=== PATIENT | female | born 1980 | race Caucasian/White ===

== ENCOUNTER 2017-07-30 17:33 | Emergency (ER) | payer MEDICAID, OTHER ==
[~2017-07-30] VITALS: Ht 167.6 cm; Wt 79.4 kg
[~2017-07-30 17:33] MED LIST: ALPR0.5T; OME20GT; PRO125RS; SERT-138
[2017-07-30 17:41] VITALS: BP 126/84
== END 2017-07-30 21:58 | disposition home or self-care (01) ==
LOC: ER 17:33
DX: F41.9 Anxiety disorder, unspecified (principal)

== ENCOUNTER 2017-12-05 15:27 | Emergency (ER) | payer MEDICAID ==
[~2017-12-05] VITALS: Ht 167.6 cm; Wt 81.6 kg
[2017-12-05 15:33] VITALS: BP 136/92
[2017-12-05] MEDS ORDERED: TETANUS-DIPTH-ACEL PERTUSSIS 0.5ML SYRG IM ONE (16:00)
[2017-12-05] MEDS ORDERED: LET TOPICAL SOLN 5 ML TOP ONE (16:15)
[2017-12-05] MEDS ORDERED: cefTRIAXone SOD 1,000 MG VL IM ONE (17:45)
[2017-12-05] MEDS ORDERED: LIDOCAINE 1%HCL (LOCAL ANESTH) 10 ML MDV ONE (17:57)
== END 2017-12-05 18:16 | disposition home or self-care (01) ==
LOC: ER 15:27
DX: S62.631B Displaced fracture of distal phalanx of left index finger, initial encounter for open fracture (principal); S61.211A Laceration without foreign body of left index finger without damage to nail, initial encounter; J45.909 Unspecified asthma, uncomplicated; W22.8XXA Striking against or struck by other objects, initial encounter; Y93.89 Activity, other specified; Y99.8 Other external cause status; Y92.89 Other specified places as the place of occurrence of the external cause
CPT/HCPCS: 73140; 90471; 90715; 96372; 99284; J0696; J2001; J3490; 12001

== ENCOUNTER 2024-01-04 04:16 | Inpatient (IN) | payer MEDICAID ==
[~2024-01-04] VITALS: Ht 167.6 cm; Wt 68.1 kg
[~2024-01-04 04:16] MED LIST changes: -SERT-138; +SERT50TA
--- NOTE | 2024-01-04 04:23 | ED.PDOC ---
SOB-HPI HPI Comments 43-year-old female with PMHx Asthma presents with a chief complaint of cough and SOB. Patient states that she has asthma and attempted to use her rescue inhaler and nebulizer to aid her in stopping her SOB, but states that she had no relief. Patient is alert and oriented and able to speak in full complete sentences. No other symptoms or modifying factors present at this time. 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 [employer] Hx Family History Family History: Unknown Social History Smoker: Non-Smoker Alcohol: Denies ETOH Use Drugs: Denies Drug Use Lives In: Home Constitutional: denies: chills, diaphoresis, fatigue, fever, malaise, sweats, weakness, others EENTM: denies: blurred vision, double vision, ear bleeding, ear discharge, ear drainage, ear pain, ear ringing, eye pain, eye redness, hearing loss, mouth pain, mouth swelling, nasal discharge, nose bleeding, nose congestion, nose pain, photophobia, tearing, throat pain, throat swelling, voice changes, others Respiratory: reports: cough, shortness of breath; denies: hemoptysis, orthopnea, SOB at rest, SOB with excertion, stridor, wheezing, others Cardiovascular: denies: chest pain, dizzy spells, diaphoresis, Dyspnea on exertion, edema, irregular heart beat, left arm pain, lightheadedness, palpitations, PND, syncope, others Gastrointestinal: denies: abdomen distended, abdominal pain, blood streaked bowels, constipated, diarrhea, dysphagia, difficulty swallowing, hematemesis, me ashish, nausea, poor appetite, poor fluid intake, rectal bleeding, rectal pain, vomiting, others Genitourinary: denies: abnormal vagina bleeding, burning, dyspareunia, dysuria, flank pain, frequency, hematuria, incontinence, pain, , vagina discharge, urgency, others Neurological: denies: dizziness, fainting, headache, left sided numbness, left sided weakness, numbness, paresthesia, pre-existing deficit, right sided numbness, right sided weakness, seizure, speech problems, tingling, tremors, weakness, others Musculoskeletal: denies: back pain, gout, joint pain, joint swelling, muscle pain, muscle stiffness, neck pain, others Integumetry: denies: bruises, change in color, change in hair/nails, dryness, laceration, lesions, lumps, rash, wounds, others Allergic/Immunocompromised: denies: Difficulty Healing, Frequent Infections, Hives, Itching, others Hematologic/Lymphatic: denies: anemia, blood clots, easy bleeding, easy bruising, swollen glands, others Endocrine: denies: excessive hunger, excessive sweating, excessive thirst, excessive urination, flushing, intolerance to cold, intolerance to heat, unexplained weight gain, unexplained weight loss, others Psychiatric: denies: anxiety, bipolar disorder, depression, hopeless, panic disorder, schizophrenia, sleepless, suicidal, others All Other Systems: Reviewed and Negative Physical Exam General Appearance: Normal, Severe Distress HEENT: Normal ENT Inspection, Pharynx Normal, TMs Normal Neck: Full Range of Motion, Non-Tender, Normal, Normal Inspection Respiratory: Accessory Muscle Use, Chest Non-Tender, Decreased Breath Sounds, Lungs Clear, Respiratory Distress, Wheezing Cardiovascular: No Edema, No JVD, No Murmur, No Gallop, Normal Peripheral Pulses, Regular Rate/Rhythm Breast Exam: Deferred Gastrointestinal: No Organomegaly, Non Tender, No Pulsatile Mass, Normal Bowel Sounds, Soft Genitalia: Deferred Pelvic: Deferred Rectal: Deferred Extremities: No calf tenderness, Normal capillary refill, Normal inspection, Normal range of motion, Non-tender, No pedal edema Musculoskeletal : Apperance: Normal Neurologic: Alert, mud mixer II-XII nml as Tested, No Motor Deficits, Normal Affect, Normal Mood, No Sensory Deficits Cerebellar Function: Normal Reflexes: Normal Skin: Dry, Normal Color, Warm Lymphatic: No Adenopathy Was a procedure done? Was a procedure done?: No Differential Dx Differential Diagnosis: Anxiety, Asthma, Bronchitis, COPD, Pneumonia X-Ray, Labs, Meds, VS Vital Signs Date Time Temp Pulse Resp B/P (MAP) Pulse Ox O2 Delivery O2 Flow Rate FiO2 01/04/24 04:29 26 96 Nasal Cannula* 6 44 01/04/24 04:26 26 86 Room Air* 0 21 01/04/24 04:23 98.1 109 26 122/87 (99) 86 Current Medications Medications (Trade) Dose Ordered Sig/Katherine Route Start Time Stop Time Status Last Admin Albuterol (Ventolin Medneb) 5 mg ONCE ONCE NEB 01/04/24 04:30 01/04/24 04:32 DC 01/04/24 04:29 Ipratropium [place] (Atrovent Medneb) 0.5 mg ONCE ONCE NEB 01/04/24 04:30 01/04/24 04:32 DC 01/04/24 04:29 The patient was given Solu-Medrol as she has been noncompliant with medications. Chest x-ray ABG and labs are pending. Patient satting at 85 on room air in the triage area. The patient will be admitted to the hospitalist for further evaluation and care. Time of 1ST Reevaluation: 04:49 Reevaluation 1ST: Unchanged Patient Education/Counseling: Diagnosis, Treatment, Prognosis Family Education/Counseling: No Family Present Departure 1 Departure Time of Disposition: 05:00 Impression: Primary Impression: Acute asthma exacerbation Qualified Codes: J45.51 - Severe persistent asthma with (acute) exacerbation Additional Impression: Bronchitis Disposition: ADMITTED INPATIENT Admit to: Tele Condition: Guarded Critical Care Note Critical Care Time?: Yes (35 min-critical care time only) Stability Stability form required: No Heart Score Heart Score: Heart Score Response (Comments) Value History N/A 0 EKG N/A 0 Age <45 0 Risk Factors No known risk factors 0 Troponin N/A 0 Total 0 I personally scribed for RADHA GONZALEZ MD ([email or web address]) on 01/04/24 at 04:23. Electronically submitted by Lui Van ([email or web address]). RADHA GONZALEZ MD Jan 04, 2024 04:23
[2024-01-04] MEDS: IPRATROPIUM BROM 0.5 MG/2.5ML INH SOL NEB ONE ×2 (04:29→04:49)
[2024-01-04] MEDS: ALBUTEROL SULF 2.5 MG/0.5ML(0.5%) NEB SOLN NEB ONE ×2 (04:29→04:45)
[2024-01-04 04:54] LABS: Base Excess -3.3 mmol/L (-2.0-3.0)
[2024-01-04 05:15] VITALS: TEMP 98.1
[2024-01-04] MEDS: levoFLOXacin 500MG 100 ML IV ONE (05:26)
[2024-01-04] MEDS: methylPREDNISolone SOD SUCC 125 MG/2 ML VL IV ONE (05:26)
--- NOTE | 2024-01-04 05:36 | DVH ---
CHEST RADIOGRAPH Indication:sob Technique: Single frontal view of the chest was obtained COMPARISON: None FINDINGS: Lines and Tubes: None Lungs: Clear Pleura: No effusion. No pneumothorax. Cardiomediastinal contours: Unremarkable Bones: Unremarkable IMPRESSION: No acute disease.
[2024-01-04 05:37] LABS: Basophils # (auto) 0.1 10 ^3/uL (0-0.2); Basophils % (auto) 0.7 % (0.0-2.0); Eosinophils % (auto) 8.1 % (0.0-7.0); Hematocrit 43.3 % (36.0-46.0); Hemoglobin 14.4 g/dL (12.2-16.2); Lymphocytes # (auto) 1.7 10 ^3/uL (0.4-5.4); Lymphocytes % (auto) 14.2 % (10.0-50.0); Mean Corpuscular Hemoglobin 31.3 pg (28.0-32.0); Mean Corpuscular Hgb Conc. 33.3 g/dL (32.0-36.0); Monocytes # (auto) 0.9 10 ^3/uL (0-1.3); Monocytes % (auto) 7.2 % (0.0-12.0); Neutrophils # (auto) 8.4 10 ^3/uL (1.6-8.6); Neutrophils % (auto) 69.8 % (37.0-80.0); Platelet Count (auto) 398 10^3/uL (140-450); Red Blood Cells 4.61 10^6/uL (4.0-5.20); Red Cell Distribution Width 13.2 % (11.8-14.3); White Blood Cell 12.1 10^3/uL (4.4-10.8)
[2024-01-04 05:58] LABS: Alanine Aminotransferase 13 U/L (7-40); Albumin 4.1 g/dL (3.2-4.8); Alkaline Phosphatase 83 U/L (46-116); Anion Gap 5 (5-15); Aspartate Aminotransferase 12 U/L (13-40); BUN/Creatinine Ratio 19.2 (10.0-20.0); Blood Urea Nitrogen 14 mg/dL (9-23); Calcium 9.4 mg/dL (8.7-10.4); Carbon Dioxide 25 mmol/L (20-31); Chloride 105 mmol/L (98-107); Glucose 99 mg/dL (74-106); Potassium 4.6 mmol/L (3.5-5.1); Sodium 135 mmol/L (136-145)
[2024-01-04 05:59] LABS: Bilirubin, Total 0.7 mg/dL (0.2-1.0)
[2024-01-04 06:02] VITALS: PULSE 87; RESP 17; O2SAT 98
[2024-01-04 06:03] LABS: INR 1.01 (0.9-1.15); Partial Thromboplastin Time 26.8 SEC (24.5-34.5); Prothrombin Time 10.7 sec (9.3-11.8)
--- NOTE | 2024-01-04 06:50 | ECG ---
[facility] Test Date: 2024-01-04 Test Time: 05:49:15 Pat Name: MARLENE [facility] Department: ED Room: Gender: F Pet Care Associate: TEMO : 1980 Requested By: RADHA GONZALEZ Order Number: [id number] Reading MD: Measurements Intervals [place] Rate: 86 P: -20 FL: 150 QRS: 81 QRSD: 82 T: 62 QT: 384 QTc: 460 Interpretive Statements Sinus rhythm Please click the below link to view image of tracing.
[2024-01-04 08:30] VITALS: PULSE 104; RESP 17; O2SAT 96
--- NOTE | 2024-01-04 08:38 | DVHHP2 ---
Admitting Diagnosis: Shortness of breath History of Present Illness 43 yo female patient with hx of asth,a c/o cough with associated SOB. Patient sts that she has found no relief with using her inhaler at home. Patient denies having any other symptoms. While in the emergency department the patient was evaluated by the provider, As per provider: Labs, vital signs, and imagining monitored. Patient will be admitted for further evaluation and treatment. I discussed admission with the patient/family and is in agreement to treatment plan. Allergies: Coded Allergies: NO KNOWN ALLERGIES (Unverified , 03/31/11) Home Meds Active Scripts Methylprednisolone (Medrol Dosepak) 4 Mg Javier, 4 MG PO UD, #21 TAB UAD Prov:XIN TARIQ MAINFRAME ANALYST 01/04/24 Fluticasone Propionate (Inhala (Fluticasone Propionate Di) 100 Mcg/Act Aer, 100 MCG IN BID for 30 Days, #1 AER Prov:XIN TARIQ MAINFRAME ANALYST 01/04/24 Albuterol Sulfate (Albuterol Sulfate Hfa) 108 Mcg/Act Aer, 108 MCG IN Q4HP PRN for 30 Days, #1 AER Prov:CHANDNIXIN Eris MAINFRAME ANALYST 01/04/24 Reported Medications Promethazine Hcl (Promethegan) 12.5 Mg Sup 03/31/11 Omeprazole (Prilosec Susp (For Gt)) 20 Mg Ss 03/31/11 Sertraline Hcl (Zoloft) 50 Mg Tab 03/31/11 Alprazolam (Xanax) 0.5 Mg Tb 03/31/11 Current Medications Current Medications Medications (Trade) Dose Ordered Sig/Katherine Route PRN Reason Start Time Stop Time Status Last Admin Acetaminophen/ Hydrocodone Bitart ([place] 5/325MG Tab) 1 tab Q4HP PRN PO MODERATE PAIN (4-6 PAIN SCALE) 01/04/24 08:45 01/04/24 12:17 DC Temazepam (Restoril) 15 mg QHSP PRN PO FOR INSOMNIA 01/04/24 08:45 01/04/24 12:17 DC Ondansetron HCl (Zofran) 4 mg Q4HP PRN IV NAUSEA / VOMITING 01/04/24 08:45 01/04/24 12:17 DC Enoxaparin Sodium (Lovenox) 40 mg DAILY SC 01/04/24 10:00 01/04/24 12:17 DC 01/04/24 09:01 Acetaminophen (Tylenol Tablet) 650 mg Q6HP PRN PO PAIN SCALE 1-3 OR TEMP>100.4 01/04/24 08:45 01/04/24 12:17 DC Morphine Sulfate 2 mg Q4HPRN PRN IV SEVERE PAIN (7-10 PAIN SCALE) 01/04/24 08:45 01/04/24 12:17 DC Albuterol (Ventolin Medneb) 2.5 mg Q4HPRN PRN NEB SHORTNESS OF BREATH 01/04/24 08:45 01/04/24 12:17 DC 01/04/24 09:10 Methylprednisolone Sodium Succinate (Solu Medrol) 40 mg Q6HR IV 01/04/24 08:45 01/04/24 12:17 DC 01/04/24 09:00 Review of Systems Constitutional: denies chills, denies fever, denies malaise Eyes: denies eye pain, denies vision change ENT: denies ear pain, denies headache, denies nasal congestion, denies painful swallowing, denies voice change Cardiovascular: denies chest pain, denies edema, denies orthopnea, denies palpi tations, denies paroxysmal nocturnal dyspnea Respiratory: denies cough, denies shortness of breath Gastrointestinal: denies constipation, denies diarrhea, denies nausea, denies vomiting Genitourinary: denies dysuria, denies frequent urination, denies urethral discharge Musculoskeletal: denies back pain, denies joint pain, denies muscle pain Skin: denies bruising, denies itching, denies rash Neurological: denies focal weakness, denies headache, denies sensory changes Psychiatric: denies anxiety, denies depression Endocrine: denies polydipsia, denies polyuria Hematologic/Lymphatic: denies easy bleeding, denies easy bruising, denies enlarged lymph nodes Allergic/Immunologic: denies allergy, denies hives Vital Signs Vital Signs Date Time Temp Pulse Resp B/P (MAP) Pulse Ox O2 Delivery O2 Flow Rate FiO2 01/04/24 10:00 90 17 122/81 (95) 98 01/04/24 09:26 2.0 28 01/04/24 09:15 Nasal Cannula* 01/04/24 05:15 98.1 98.1 Physical Exam General Appearance: alert, no distress HEENT: EOMI, PERRLA, normal external inspect of ears, no icterus, no nasal drainage Neck: no carotid bruit, no jugular venous distention (JVD), no lymphadenopathy Chest: normal thorax Respiratory: clear to auscultation, normal air movement Cardiovascular: regular rate and rhythm, no diastolic murmur, no jugular venous distention (JVD), no rub, no systolic murmur Abdominal: soft, no hepatomegaly, no mass, no splenomegaly, no tenderness Genitourinary: grossly normal external Musculoskeletal: no joint tenderness, no swelling Extremities: normal pulses, no calf tenderness, no clubbing, no cyanosis, no edema Skin: no bruising, no jaundice, no rash Neurological: alert, No focal deficit Results Labs Test 01/04/24 05:32 01/04/24 04:56 01/04/24 04:45 Range/Units Troponin I High Sensitivity < 3 L </=34 ng/L White Blood Count 12.1 H 4.4-10.8 10^3/uL Red Blood Count 4.61 4.0-5.20 10^6/uL Hemoglobin 14.4 12.2-16.2 g/dL Hematocrit 43.3 36.0-46.0 % Mean Corpuscular Volume 94.0 80.0-100.0 fL Mean Corpuscular Hemoglobin 31.3 28.0-32.0 pg Mean Corpuscular Hemoglobin Concent 33.3 32.0-36.0 g/dL Red Cell Distribution Width 13.2 11.8-14.3 % Platelet Count 398 140-450 10^3/uL Mean Platelet Volume 8.0 6.9-10.8 fL Neutrophils (%) (Auto) 69.8 37.0-80.0 % Lymphocytes (%) (Auto) 14.2 10.0-50.0 % Monocytes (%) (Auto) 7.2 0.0-12.0 % Eosinophils (%) (Auto) 8.1 H 0.0-7.0 % Basophils (%) (Auto) 0.7 0.0-2.0 % Neutrophils # (Auto) 8.4 1.6-8.6 10 ^3/uL Lymphocytes # (Auto) 1.7 0.4-5.4 10 ^3/uL Monocytes # (Auto) 0.9 0-1.3 10 ^3/uL Eosinophils # (Auto) 1.0 H 0-0.8 10 ^3/uL Basophils # (Auto) 0.1 0-0.2 10 ^3/uL Nucleated Red Blood Cells 0.0 % Prothrombin Time 10.7 9.3-11.8 sec Prothrombin Time INR 1.01 0.9-1.15 Activated Partial Thromboplast Time 26.8 24.5-34.5 SEC Sodium Level 135 L 136-145 mmol/L Potassium Level 4.6 3.5-5.1 mmol/L Chloride Level 105 98-107 mmol/L Carbon Dioxide Level 25 20-31 mmol/L Anion Gap 5 5-15 Blood Urea Nitrogen 14 9-23 mg/dL Creatinine 0.73 0.550-1.02 mg/dL Glomerular Filtration Rate Calc 104 >90 mL/min BUN/Creatinine Ratio 19.2 10.0-20.0 Serum Glucose 99 74-106 mg/dL Calcium Level 9.4 8.7-10.4 mg/dL Total Bilirubin 0.7 0.2-1.0 mg/dL Aspartate Amino Transferase (AST) 12 L 13-40 U/L Alanine Aminotransferase (ALT) 13 7-40 U/L Alkaline Phosphatase 83 46-116 U/L B-Type Natriuretic Peptide 14.20 0-100 pg/mL Total Protein 7.0 5.7-8.2 g/dL Albumin 4.1 3.2-4.8 g/dL Beta HCG, Quantitative < 0.0 L 1.5-4.2 mIU/mL Blood Gas Specimen Type Arterial Blood Gas Sample Site Left radial Blood Gas Patient Temperature 37.0 Arterial Blood Date Drawn [id number] Arterial Blood pH 7.411 7.350-7.450 Arterial Blood Partial Pressure CO2 32.8 32.0-45.0 mmHg Arterial Blood Partial Pressure O2 76.2 L 83.0-108.0 mmHg Arterial Blood HCO3 20.4 L 21.0-28.0 mmol/L Arterial Blood Oxygen Saturation 94.9 94.0-98.0 % Arterial Blood Base Excess -3.3 L -2.0-3.0 mmol/L Arterial Blood Oxyhemoglobin 93.6 L 94.0-98.0 % Arterial Blood Carboxyhemoglobin 0.9 0.5-1.5 % Arterial Blood Methemoglobin 0.5 0.0-1.5 % Akash Test Yes Blood Gas Total Hemoglobin 14.80 12.0-16.0 g/dL Blood Gas Liter Flow 6.00 Blood Gas Modality Nasal cannula FiO2 % 44.0 Specimen Drawn By [employer] Equipment Operator annalisa mooney Plan 1. Severe asthma exacerbation Monitor, med neb tx, pulmonary consult, supplemental O2 2. Acute hypoxic respiratory syndrome Monitor, med neb tx, pulmonary consult, supplemental O2, DVT prophylaxis, SCDs 3. GERD Monitor, IV solumedrol 4. Anxiety Monitor Plan discussed with: Patient, Other XIN TARIQ MAINFRAME ANALYST Jan 04, 2024 08:38
[2024-01-04] MEDS ORDERED: ONDANSETRON HCL 4 MG/2 ML VIAL IV PRN (08:45)
[2024-01-04] MEDS ORDERED: TEMAZEPAM 15 MG CAP PO PRN (08:45)
[2024-01-04] MEDS ORDERED: MORPHINE SULFATE INJ 2 MG/ml SYRG IV PRN (08:45)
[2024-01-04] MEDS ORDERED: HYDROcodone-ACET 5/325MG TAB PO PRN (08:45)
[2024-01-04] MEDS ORDERED: ACETAMINOPHEN 325 MG TAB PO PRN (08:45)
[2024-01-04] MEDS: methylPREDNISolone SOD SUCC 40 MG/ML VL IV SCH (09:00)
[2024-01-04] MEDS: ENOXAPARIN SOD 40 MG/0.4 ML SYRINGE SC SCH (09:01)
[2024-01-04] MEDS: ALBUTEROL SULF 2.5 MG/0.5ML(0.5%) NEB SOLN NEB PRN (09:10)
[2024-01-04 09:26] VITALS: BP 120/87; PULSE 104; RESP 22; O2SAT 97
[2024-01-04 10:00] VITALS: BP 122/81; PULSE 90; RESP 17; O2SAT 98
[2024-01-04] MEDS ORDERED: FLUT100A7 IN (11:49)
[2024-01-04] MEDS ORDERED: ALBU108A5 IN (11:49)
[2024-01-04] MEDS ORDERED: METH4PAK PO (11:49)
--- NOTE | 2024-01-04 11:53 | DVHDS2 ---
Discharge Summary Date of Admission Jan 04, 2024 at 08:34 Date of Discharge: Jan 04, 2024 Labs/Diagnostic Data: Laboratory Results Test 01/04/24 05:32 01/04/24 04:56 01/04/24 04:45 Troponin I High Sensitivity < 3 ng/L (</=34) White Blood Count 12.1 10^3/uL (4.4-10.8) Red Blood Count 4.61 10^6/uL (4.0-5.20) Hemoglobin 14.4 g/dL (12.2-16.2) Hematocrit 43.3 % (36.0-46.0) Mean Corpuscular Volume 94.0 fL (80.0-100.0) Mean Corpuscular Hemoglobin 31.3 pg (28.0-32.0) Mean Corpuscular Hemoglobin Concent 33.3 g/dL (32.0-36.0) Red Cell Distribution Width 13.2 % (11.8-14.3) Platelet Count 398 10^3/uL (140-450) Mean Platelet Volume 8.0 fL (6.9-10.8) Neutrophils (%) (Auto) 69.8 % (37.0-80.0) Lymphocytes (%) (Auto) 14.2 % (10.0-50.0) Monocytes (%) (Auto) 7.2 % (0.0-12.0) Eosinophils (%) (Auto) 8.1 % (0.0-7.0) Basophils (%) (Auto) 0.7 % (0.0-2.0) Neutrophils # (Auto) 8.4 10 ^3/uL (1.6-8.6) Lymphocytes # (Auto) 1.7 10 ^3/uL (0.4-5.4) Monocytes # (Auto) 0.9 10 ^3/uL (0-1.3) Eosinophils # (Auto) 1.0 10 ^3/uL (0-0.8) Basophils # (Auto) 0.1 10 ^3/uL (0-0.2) Nucleated Red Blood Cells 0.0 % Prothrombin Time 10.7 sec (9.3-11.8) Prothrombin Time INR 1.01 (0.9-1.15) Activated Partial Thromboplast Time 26.8 SEC (24.5-34.5) Sodium Level 135 mmol/L (136-145) Potassium Level 4.6 mmol/L (3.5-5.1) Chloride Level 105 mmol/L (98-107) Carbon Dioxide Level 25 mmol/L (20-31) Anion Gap 5 (5-15) Blood Urea Nitrogen 14 mg/dL (9-23) Creatinine 0.73 mg/dL (0.550-1.02) Glomerular Filtration Rate Calc 104 mL/min (>90) BUN/Creatinine Ratio 19.2 (10.0-20.0) Serum Glucose 99 mg/dL (74-106) Calcium Level 9.4 mg/dL (8.7-10.4) Total Bilirubin 0.7 mg/dL (0.2-1.0) Aspartate Amino Transferase (AST) 12 U/L (13-40) Alanine Aminotransferase (ALT) 13 U/L (7-40) Alkaline Phosphatase 83 U/L (46-116) B-Type Natriuretic Peptide 14.20 pg/mL (0-100) Total Protein 7.0 g/dL (5.7-8.2) Albumin 4.1 g/dL (3.2-4.8) Beta HCG, Quantitative < 0.0 mIU/mL (1.5-4.2) Blood Gas Specimen Type Arterial Blood Gas Sample Site Left radial Blood Gas Patient Temperature 37.0 Arterial Blood Date Drawn [id number] Arterial Blood pH 7.411 (7.350-7.450) Arterial Blood Partial Pressure CO2 32.8 mmHg (32.0-45.0) Arterial Blood Partial Pressure O2 76.2 mmHg (83.0-108.0) Arterial Blood HCO3 20.4 mmol/L (21.0-28.0) Arterial Blood Oxygen Saturation 94.9 % (94.0-98.0) Arterial Blood Base Excess -3.3 mmol/L (-2.0-3.0) Arterial Blood Oxyhemoglobin 93.6 % (94.0-98.0) Arterial Blood Carboxyhemoglobin 0.9 % (0.5-1.5) Arterial Blood Methemoglobin 0.5 % (0.0-1.5) Akash Test Yes Blood Gas Total Hemoglobin 14.80 g/dL (12.0-16.0) Blood Gas Liter Flow 6.00 Blood Gas Modality Nasal cannula FiO2 % 44.0 Specimen Drawn By Civil Draftsman annalisa jesica Other Laboratory Tests 01/04/24 04:56 Brief Hx & Hospital Course: 43 yo female patient with hx of asth,a c/o cough with associated SOB. Patient sts that she has found no relief with using her inhaler at home. Patient denies having any other symptoms. Patient left AMA. The patient decided they wanted to leave AMA. The patient was informed about the risk of leaving. And was informed about the risk that are involved if they left without any treatment which may include . The patient was okay with it and decided to leave without any intervention. The patient was told to return for any worsening symptoms. Condition at Discharge: Unstable Final Diagnosis/Problems List Severe asthma exacerbation Acute hypoxic respiratory syndrome GERD Anxiety Discharge Disposition: AMA Discharge Instruct/Medications Diet: Regular Activity: No Restrictions, As Tolerated Follow Up/Referral: pcp 1 week Medications: Flovent inhaler 2 x a day Albuterol inhaler-rescue inhaler - 2 puffs every 4 hrs as needed for SOB steroid taper mendel- take as instructed Discharge Statement: "Patient was advised to return to the ER or call 911 if any headaches, dizziness, shortness of breath, chest pain, abdominal pain, bleeding, fevers, or worsening of medical condition. Patient was counseled about treatment plan, medications, possible side effects, patientverbalized understanding. All questions were answered to the best of my ability. This discharge took greater then 30 minutes in planning, reviewing documentation, counseling the patient, and discussing with other team members." ASSESSMENT ASSESSMENT Assessment Asthma XIN Leyva NP Jan 04, 2024 11:52
--- NOTE | 2024-01-04 13:30 | DVHINCON2 ---
Date of service: Jan 03, 2024 Referring Physician BRITTNEY Tariq Reason for Consultation Acute asthma exacerbation History of Present Illness 43-year-old woman history of asthma who presented with cough and shortness of breath. She ran out of inhaler. She states that is for her asthma attack began. She also has a nebulizer. She had no relief so she came to the ED for evaluation. She was requiring supplemental oxygen. She was initiated on 6 liters/minute via nasal cannula. Pulmonary consultation is called due to acute hypoxic respiratory failure and asthma exacerbation. Review of systems: 14 point review of systems is negative unless otherwise noted above. Past medical history: Anxiety, asthma Past surgical history: None mentioned in prior surgeries. Medications: Reviewed Allergies: No known drug allergies. Family history: No family history of premature CAD. No family history of lung disease Social history: Nonsmoker. No alcohol or illicit drug use. Lives at home. Allergies: Coded Allergies: NO KNOWN ALLERGIES (Unverified , 03/31/11) Home Meds Active Scripts Methylprednisolone (Medrol Dosepak) 4 Mg Javier, 4 MG PO UD, #21 TAB UAD Prov:XIN TARIQ NP 01/04/24 Fluticasone Propionate (Inhala (Fluticasone Propionate Di) 100 Mcg/Act Aer, 100 MCG IN BID for 30 Days, #1 AER Prov:XIN TARIQ NP 01/04/24 Albuterol Sulfate (Albuterol Sulfate Hfa) 108 Mcg/Act Aer, 108 MCG IN Q4HP PRN for 30 Days, #1 AER Prov:XIN TARIQ NP 01/04/24 Reported Medications Promethazine Hcl (Promethegan) 12.5 Mg Sup 03/31/11 Omeprazole (Prilosec Susp (For Gt)) 20 Mg Ss 03/31/11 Sertraline Hcl (Zoloft) 50 Mg Tab 03/31/11 Alprazolam (Xanax) 0.5 Mg Tb 03/31/11 Current Medications Current Medications Medications (Trade) Dose Ordered Sig/Katherine Route PRN Reason Start Time Stop Time Status Last Admin Acetaminophen/ Hydrocodone Bitart (Paoli 5/325MG Tab) 1 tab Q4HP PRN PO MODERATE PAIN (4-6 PAIN SCALE) 01/04/24 08:45 01/04/24 12:17 DC Temazepam (Restoril) 15 mg QHSP PRN PO FOR INSOMNIA 01/04/24 08:45 01/04/24 12:17 DC Ondansetron HCl (Zofran) 4 mg Q4HP PRN IV NAUSEA / VOMITING 01/04/24 08:45 01/04/24 12:17 DC Enoxaparin Sodium (Lovenox) 40 mg DAILY SC 01/04/24 10:00 01/04/24 12:17 DC 01/04/24 09:01 Acetaminophen (Tylenol Tablet) 650 mg Q6HP PRN PO PAIN SCALE 1-3 OR TEMP>100.4 01/04/24 08:45 01/04/24 12:17 DC Morphine Sulfate 2 mg Q4HPRN PRN IV SEVERE PAIN (7-10 PAIN SCALE) 01/04/24 08:45 01/04/24 12:17 DC Albuterol (Ventolin Medneb) 2.5 mg Q4HPRN PRN NEB SHORTNESS OF BREATH 01/04/24 08:45 01/04/24 12:17 DC 01/04/24 09:10 Methylprednisolone Sodium Succinate (Solu Medrol) 40 mg Q6HR IV 01/04/24 08:45 01/04/24 12:17 DC 01/04/24 09:00 Vital Signs Vital Signs Date Time Temp Pulse Resp B/P (MAP) Pulse Ox O2 Delivery O2 Flow Rate FiO2 01/04/24 10:00 90 17 122/81 (95) 98 01/04/24 09:26 2.0 28 01/04/24 09:15 Nasal Cannula* 01/04/24 05:15 98.1 98.1 Physical Exam Gen.: Patient lying in bed in no apparent distress. On supplemental oxygen. Head: Normocephalic, atraumatic Eyes: EOMI/PERRLA. Ears: Normal hearing. Normal anatomy. Neck/trachea: Trachea midline, supple. Nose: Normal external anatomy. Mouth: Moist mucous membranes. Chest: Decreased air entry bilaterally. Bilateral wheezing. No rhonchi. Cardio vascular: Positive S1, positive S2. Regular rate and rhythm. Abdomen: Positive bowel sounds in all 4 quadrants. Soft, non-tender, non- distended. : Deferred. Rectal: Deferred Skin: Warm, dry. Extremities: 2+ radial pulses bilaterally. No lower extremity edema. Neuro: Awake, alert, oriented x3. No gross motor or sensory deficits. Cranial nerves II through XII intact. Gait not assessed. Labs/Diagnostic Data Labs Test 01/04/24 05:32 01/04/24 04:56 01/04/24 04:45 Range/Units Troponin I High Sensitivity < 3 L </=34 ng/L White Blood Count 12.1 H 4.4-10.8 10^3/uL Red Blood Count 4.61 4.0-5.20 10^6/uL Hemoglobin 14.4 12.2-16.2 g/dL Hematocrit 43.3 36.0-46.0 % Mean Corpuscular Volume 94.0 80.0-100.0 fL Mean Corpuscular Hemoglobin 31.3 28.0-32.0 pg Mean Corpuscular Hemoglobin Concent 33.3 32.0-36.0 g/dL Red Cell Distribution Width 13.2 11.8-14.3 % Platelet Count 398 140-450 10^3/uL Mean Platelet Volume 8.0 6.9-10.8 fL Neutrophils (%) (Auto) 69.8 37.0-80.0 % Lymphocytes (%) (Auto) 14.2 10.0-50.0 % Monocytes (%) (Auto) 7.2 0.0-12.0 % Eosinophils (%) (Auto) 8.1 H 0.0-7.0 % Basophils (%) (Auto) 0.7 0.0-2.0 % Neutrophils # (Auto) 8.4 1.6-8.6 10 ^3/uL Lymphocytes # (Auto) 1.7 0.4-5.4 10 ^3/uL Monocytes # (Auto) 0.9 0-1.3 10 ^3/uL Eosinophils # (Auto) 1.0 H 0-0.8 10 ^3/uL Basophils # (Auto) 0.1 0-0.2 10 ^3/uL Nucleated Red Blood Cells 0.0 % Prothrombin Time 10.7 9.3-11.8 sec Prothrombin Time INR 1.01 0.9-1.15 Activated Partial Thromboplast Time 26.8 24.5-34.5 SEC Sodium Level 135 L 136-145 mmol/L Potassium Level 4.6 3.5-5.1 mmol/L Chloride Level 105 98-107 mmol/L Carbon Dioxide Level 25 20-31 mmol/L Anion Gap 5 5-15 Blood Urea Nitrogen 14 9-23 mg/dL Creatinine 0.73 0.550-1.02 mg/dL Glomerular Filtration Rate Calc 104 >90 mL/min BUN/Creatinine Ratio 19.2 10.0-20.0 Serum Glucose 99 74-106 mg/dL Calcium Level 9.4 8.7-10.4 mg/dL Total Bilirubin 0.7 0.2-1.0 mg/dL Aspartate Amino Transferase (AST) 12 L 13-40 U/L Alanine Aminotransferase (ALT) 13 7-40 U/L Alkaline Phosphatase 83 46-116 U/L B-Type Natriuretic Peptide 14.20 0-100 pg/mL Total Protein 7.0 5.7-8.2 g/dL Albumin 4.1 3.2-4.8 g/dL Beta HCG, Quantitative < 0.0 L 1.5-4.2 mIU/mL Blood Gas Specimen Type Arterial Blood Gas Sample Site Left radial Blood Gas Patient Temperature 37.0 Arterial Blood Date Drawn [id number] Arterial Blood pH 7.411 7.350-7.450 Arterial Blood Partial Pressure CO2 32.8 32.0-45.0 mmHg Arterial Blood Partial Pressure O2 76.2 L 83.0-108.0 mmHg Arterial Blood HCO3 20.4 L 21.0-28.0 mmol/L Arterial Blood Oxygen Saturation 94.9 94.0-98.0 % Arterial Blood Base Excess -3.3 L -2.0-3.0 mmol/L Arterial Blood Oxyhemoglobin 93.6 L 94.0-98.0 % Arterial Blood Carboxyhemoglobin 0.9 0.5-1.5 % Arterial Blood Methemoglobin 0.5 0.0-1.5 % Akash Test Yes Blood Gas Total Hemoglobin 14.80 12.0-16.0 g/dL Blood Gas Liter Flow 6.00 Blood Gas Modality Nasal cannula FiO2 % 44.0 Specimen Drawn By Janis mooney Assessment Impression: Acute exacerbation of asthma Acute hypoxic respiratory failure secondary to asthma exacerbation Bronchitis Nonadherence Leucocytosis Plan: Chest x-ray imaging report reviewed. No acute opacities. No pleural effusion or pneumothorax. Supplemental oxygen 6 liters/minute via nasal cannula Keep O2 saturation above 92%. IV steroids Bronchodilators Antibiotics Antitussive as needed. Adherence to medications encouraged. As patient to ensure to have enough refills and to scheduled regular follow up with her PCP. DVT prophylaxis Prognosis: Poor given multiple comorbidities. Rest of plan per hospitalist and other consultants. Thank you Dr. Romano/Morena Tariq NP for allowing me to participate in this patient's care. Further recommendations will depend on patient's clinical course. Please do not hesitate to contact me if you have any questions or concerns. This medical document was created using an electronic medical record system with [employer] dictation system. Although this document has been carefully reviewed, there may still be some phonetic and typographical errors. These areas are purely typographical due to imperfections of the software programs, and do not reflect any compromise in the patient's medical care. Plan discussed with: Patient, Other (RN, UNDERWATER HUNTER TRAPPER) JULIA TAYLOR MD Jan 04, 2024 13:30
--- NOTE | 2024-01-04 13:32 | DVHPN2 ---
Progress Note - Dictate Date Seen: Jan 04, 2024 Medical Necessity Reason Pt with a Central, PICC or Fol: No Subjective Patient seen and examined at bedside in the emergency department. On 2 liters/minute via nasal cannula Overnight events reviewed. vital signs Vital Sign Date Time Temp Pulse Resp B/P (MAP) Pulse Ox O2 Delivery O2 Flow Rate FiO2 01/04/24 10:00 90 17 122/81 (95) 98 01/04/24 09:26 2.0 28 01/04/24 09:15 Nasal Cannula* 01/04/24 05:15 98.1 98.1 Total Intake and Output 01/03/24 01/03/24 01/04/24 15:00 23:00 07:00 Intake Total 100 ml Balance 100 ml objective Gen.: Patient lying in bed in no apparent distress. On supplemental oxygen. Head: Normocephalic, atraumatic Eyes: EOMI/PERRLA. Ears: Normal hearing. Normal anatomy. Neck/trachea: Trachea midline, supple. Nose: Normal external anatomy. Mouth: Moist mucous membranes. Chest: Decreased air entry bilaterally. Bilateral wheezing, improved. It was lower than yesterday.. No rhonchi. Cardio vascular: Positive S1, positive S2. Regular rate and rhythm. Abdomen: Positive bowel sounds in all 4 quadrants. Soft, non-tender, non- distended. : Deferred. Rectal: Deferred Skin: Warm, dry. Extremities: 2+ radial pulses bilaterally. No lower extremity edema. Neuro: Awake, alert, oriented x3. No gross motor or sensory deficits. Cranial nerves II through XII intact. Gait not assessed. laboratory and microbiology Laboratory Tests 01/04/24 04:56 Test 01/04/24 04:56 Range/Units Serum Glucose 99 74-106 mg/dL Assessment/Plan Impression: Acute exacerbation of asthma Acute hypoxic respiratory failure secondary to asthma exacerbation Bronchitis Nonadherence Leucocytosis Events: Wheezing improving. He was lower than yesterday. Better air entry. Patient feeling better. Improved from 6 liters/minute to 2 liters/minute. Taper oxygen to discontinuation. If patient able to tolerate being on room air, she was stable from the pulmonary standpoint for discharge. Complete prednisone and antibiotic course at home, oral. Continue bronchodilators. Recommend follow up in Pulmonary office within 1-2 weeks. Rest of plan as outlined below. Plan: Chest x-ray imaging report reviewed. No acute opacities. No pleural effusion or pneumothorax. Supplemental oxygen 6 liters/minute via nasal cannula Keep O2 saturation above 92%. IV steroids Bronchodilators Antibiotics Antitussive as needed. Adherence to medications encouraged. As patient to ensure to have enough refills and to scheduled regular follow up with her PCP. DVT prophylaxis Prognosis: Poor given multiple comorbidities. Rest of plan per hospitalist and other consultants. Thank you Dr. Romano/Morena Riggs NP for allowing me to participate in this patient's care. Further recommendations will depend on patient's clinical course. Please do not hesitate to contact me if you have any questions or concerns. This medical document was created using an electronic medical record system with [employer] dictation system. Although this document has been carefully reviewed, there may still be some phonetic and typographical errors. These areas are purely typographical due to imperfections of the software programs, and do not reflect any compromise in the patient's medical care. Plan discussed with: Patient, Other (IRENA Wang, POLL CLERK) JULIA TAYLOR MD Jan 04, 2024 13:32
== END 2024-01-04 11:15 | disposition left against medical advice (07) | DRG 141 ==
LOC: ER 04:16 → OVERFLOW 08:34
PROVIDERS: ADMIT Nurse Practitioner; ATTEND Nurse Practitioner
DX: J45.51 Severe persistent asthma with (acute) exacerbation (principal); J80 Acute respiratory distress syndrome; D72.829 Elevated white blood cell count, unspecified; F41.9 Anxiety disorder, unspecified; J40 Bronchitis, not specified as acute or chronic; Z53.29 Procedure and treatment not carried out because of patient's decision for other reasons; K21.9 Gastro-esophageal reflux disease without esophagitis; Z79.899 Other long term (current) drug therapy
CPT/HCPCS: 36415; 36600; 71045; 80053; 82805; 83880; 84484; 84702; 85025; 85610; 85730; 93005; 94640; 99291; G0378; J1956

== ENCOUNTER 2024-02-12 19:40 | Emergency (ER) | payer MEDICAID ==
[~2024-02-12] VITALS: Ht 167.6 cm; Wt 63.8 kg
[~2024-02-12 19:40] MED LIST changes: +ALBU108A5 IN; +ALBUAER3 IN; +FLUT100A7 IN; +METH4PAK PO; +PRED20TA2 PO
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
[2024-02-12] MEDS: ceFAZolin 2 GM/D5W50ml 50 ML IV ONE (22:00)
[2024-02-12 22:16] LABS: Basophils # (auto) 0.1 10 ^3/uL (0-0.2); Basophils % (auto) 1.2 % (0.0-2.0); Eosinophils # (auto) 0.7 10 ^3/uL (0-0.8); Eosinophils % (auto) 8.1 % (0.0-7.0); Hematocrit 42.8 % (36.0-46.0); Hemoglobin 14.5 g/dL (12.2-16.2); Lymphocytes # (auto) 2.1 10 ^3/uL (0.4-5.4); Lymphocytes % (auto) 24.9 % (10.0-50.0); Mean Corpuscular Hemoglobin 31.6 pg (28.0-32.0); Mean Corpuscular Hgb Conc. 33.8 g/dL (32.0-36.0); Mean Corpuscular Volume 93.4 fL (80.0-100.0); Monocytes # (auto) 0.6 10 ^3/uL (0-1.3); Monocytes % (auto) 7.5 % (0.0-12.0); Neutrophils % (auto) 58.3 % (37.0-80.0); Nucleated Red Blood Cells % 0.2 %; Platelet Count (auto) 386 10^3/uL (140-450); Red Blood Cells 4.58 10^6/uL (4.0-5.20); White Blood Cell 8.5 10^3/uL (4.4-10.8)
[2024-02-12 22:27] LABS: Sodium 143 mmol/L (136-145)
[2024-02-12 22:28] LABS: Anion Gap 6 (5-15); Carbon Dioxide 27 mmol/L (20-31)
[2024-02-12 22:29] LABS: Calcium 9.5 mg/dL (8.7-10.4)
[2024-02-12 22:33] LABS: Blood Urea Nitrogen 15 mg/dL (9-23); Glucose 87 mg/dL (74-106)
[2024-02-12 22:34] LABS: Blood Alcohol 102.1 mg/dL (<10); Chloride 110 mmol/L (98-107); Potassium 3.5 mmol/L (3.5-5.1)
[2024-02-12 22:54] VITALS: BP 111/82; PULSE 95; RESP 16; TEMP 98.9; O2SAT 97
== END 2024-02-12 23:11 | disposition short-term general hospital (02) ==
LOC: ER 19:40
DX: S01.131A Puncture wound without foreign body of right eyelid and periocular area, initial encounter (principal); S09.93XA Unspecified injury of face, initial encounter; H54.61 Unqualified visual loss, right eye, normal vision left eye; J45.909 Unspecified asthma, uncomplicated; F41.9 Anxiety disorder, unspecified; W34.09XA Accidental discharge from other specified firearms, initial encounter; Y93.89 Activity, other specified; Y92.89 Other specified places as the place of occurrence of the external cause; Y99.8 Other external cause status
CPT/HCPCS: 36415; 70450; 70486; 80048; 80320; 85025; 99285; J0690

== ENCOUNTER 2024-02-28 21:12 | Emergency (ER) | payer MEDICAID ==
[~2024-02-28] VITALS: Ht 167.6 cm; Wt 64.8 kg
[2024-02-28] MEDS: methylPREDNISolone SOD SUCC 125 MG/2 ML VL IM ONE (22:30)
[2024-02-28] MEDS: IPRATROPIUM BROM 0.5 MG/2.5ML INH SOL NEB ONE (22:46)
[2024-02-28] MEDS: ALBUTEROL SULF 2.5 MG/0.5ML(0.5%) NEB SOLN NEB ONE (22:46)
[2024-02-29] MEDS ORDERED: PRED20TA2 PO (02:39)
[2024-02-29] MEDS ORDERED: ACET500T58 PO (02:39)
[2024-02-29] MEDS ORDERED: AZIT-43 PO (02:39)
[2024-02-29] MEDS ORDERED: ALBUAER3 IN (02:40)
--- NOTE | 2024-02-29 02:40 | ED.PDOC ---
SOB-HPI HPI Comments 43-YEAR-OLD FEMALE PRESENTS TO ER WITH COMPLAINTS OF COUGH X2 WEEKS. PATIENT WITH PAST MEDICAL HISTORY SIGNIFICANT FOR ASTHMA REPORTS THAT SHE HAS BEEN EXPERIENCING COUGH, CONGESTION, INTERMITTENT EPISODES OF SHORTNESS OF BREATH AND INTERMITTENT FRONTAL HEADACHE PAIN X2 WEEKS. REPORTS THAT SHE HAS BEEN USING HER ALBUTEROL INHALER WITH SLIGHT RELIEF AND STATES THAT SHE RECENTLY JUST RAN OUT OF HER ALBUTEROL INHALER YESTERDAY. SHE RATES HER CURRENT FRONTAL HEADACHE PAIN A 7/10. PATIENT PRESENTS TO ER AMBULATORY ON ARRIVAL, WITH STEADY GAIT, IN NO DISTRESS WITH VITALS STABLE. 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 Hx Family History Family History: Unknown Social History Smoker: Non-Smoker Alcohol: Denies ETOH Use Drugs: Marijuana Lives In: Home Constitutional: denies: chills, diaphoresis, fatigue, fever, malaise, sweats, weakness, others EENTM: reports: others ( STATED IN HPI) Respiratory: reports: others ( STATED IN HPI) Cardiovascular: denies: chest pain, dizzy spells, diaphoresis, Dyspnea on exertion, edema, irregular heart beat, left arm pain, lightheadedness, palpitations, PND, syncope, others Gastrointestinal: denies: abdomen distended, abdominal pain, blood streaked bowels, constipated, diarrhea, dysphagia, difficulty swallowing, hematemesis, melena, nausea, poor appetite, poor fluid intake, rectal bleeding, rectal pain, vomiting, others Genitourinary: denies: abnormal vagina bleeding, burning, dyspareunia, dysuria, flank pain, frequency, hematuria, incontinence, pain, , vagina disc harge, urgency, others Neurological: reports: others ( STATED IN HPI) Musculoskeletal: denies: back pain, gout, joint pain, joint swelling, muscle pain, muscle stiffness, neck pain, others Integumetry: denies: bruises, change in color, change in hair/nails, dryness, laceration, lesions, lumps, rash, wounds, others Allergic/Immunocompromised: denies: Difficulty Healing, Frequent Infections, Hives, Itching, others Hematologic/Lymphatic: denies: anemia, blood clots, easy bleeding, easy bruising, swollen glands, others Endocrine: denies: excessive hunger, excessive sweating, excessive thirst, excessive urination, flushing, intolerance to cold, intolerance to heat, unexplained weight gain, unexplained weight loss, others Psychiatric: denies: anxiety, bipolar disorder, depression, hopeless, panic disorder, schizophrenia, sleepless, suicidal, others Physical Exam General Appearance: No Apparent Distress HEENT: Normal ENT Inspection, PERRL/EOMI, Pharynx Normal, TMs Normal Neck: Full Range of Motion, Non-Tender, Normal Respiratory: Chest Non-Tender, Decreased Breath Sounds (MILDLY NOTED TO BILATERAL UPPER LUNG MADRIGAL), Lungs Clear, No Accessory Muscle Use, No Respiratory Distress Cardiovascular: No Murmur, No Gallop, Regular Rate/Rhythm Breast Exam: Deferred Gastrointestinal: NOT DONE Genitalia: Deferred Pelvic: Deferred Rectal: Deferred Extremities: Normal capillary refill, Normal range of motion Neurologic: Alert, 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 Was a procedure done?: No Sedation Sedation?: No Differential Dx Differential Diagnosis: Pneumonia, Pulmonary Embolism, Respiratory Distress X-Ray, Labs, Meds, VS Vital Signs Date Time Temp Pulse Resp B/P (MAP) Pulse Ox O2 Delivery O2 Flow Rate FiO2 02/28/24 22:46 20 96 Room Air* 0 21 02/28/24 21:30 97.9 86 18 117/78 (91) 96 Current Medications Medications (Trade) Dose Ordered Sig/Katherine Route Start Time Stop Time Status Last Admin Albuterol (Ventolin Medneb) 5 mg ONCE ONCE NEB 02/28/24 22:30 02/28/24 22:31 DC 02/28/24 22:46 Ipratropium [place] (Atrovent Medneb) 0.5 mg ONCE ONCE NEB 02/28/24 22:30 02/28/24 22:31 DC 02/28/24 22:46 DUO NEBULIZER TREATMENT ORDERED SOLU-MEDROL 125 MG IM ORDERED CANNABIS CESSATION DISCUSSED AND ADVISED PATIENT HAD IMPROVEMENT IN SYMPTOMS AND IN NO DISTRESS PRIOR TO DISCHARGE ADVISED TO DRINK PLENTY OF FLUIDS ADVISED TO FOLLOW UP WITH PCP IN 1-2 DAYS PATIENT VERBALIZED UNDERSTANDING AND AGREEABLE WITH CURRENT PLAN OF CARE ADVISED TO RETURN TO ER IMMEDIATELY IF SYMPTOMS WORSEN Time of 1ST Reevaluation: 02:12 Reevaluation 1ST: N/A Time of 2ND Reevaluation: 02:30 Reevaluation 2ND: Improved Patient Education/Counseling: Diagnosis, Treatment, Prognosis, Need For Follow Up Family Education/Counseling: No Family Present Departure 1 Departure Time of Disposition: 02:32 Impression: Primary Impression: Acute asthmatic bronchitis Disposition: HOME / SELF CARE / HOMELESS Condition: Stable e-Prescriptions Albuterol Sulfate (VENTOLIN MDI) 90 Mcg Ih 2 PUFF IN Q4HPRN, #1 INH 0 Refills Prov: SHANEL ROACH 02/29/24 Prednisone (Prednisone) 20 Mg Tab 20 MG PO BID for 5 Days, #10 TAB 0 Refills Prov: SHANEL ROACH 02/29/24 Acetaminophen (Acetaminophen) 500 Mg Tab 500 MG PO Q4HPRN, #30 TAB 0 Refills Prov: SHANEL ROACH 02/29/24 Azithromycin (Azithromycin) 250 Mg Tab 250 MG PO DAILY MDD 500 for 5 Days, #6 TAB 0 Refills 2 TABLETS ORALLY ON DAY ONE, THEN 1 TABLET ORALLY DAILY FOR 4 DAYS Prov: SHANEL ROACH 02/29/24 Discharged With: Self Critical Care Note Critical Care Time?: No Stability Stability form required: No Heart Score Heart Score: Heart Score Response (Comments) Value History N/A 0 EKG N/A 0 Age N/A 0 Risk Factors N/A 0 Troponin N/A 0 Total 0 SHANEL ROACH Feb 29, 2024 02:40
[2024-02-29 03:30] VITALS: BP 123/81; PULSE 91; RESP 18; TEMP 97.8; O2SAT 96
== END 2024-02-29 02:40 | disposition home or self-care (01) ==
LOC: ER 21:12
DX: J45.909 Unspecified asthma, uncomplicated (principal); F12.10 Cannabis abuse, uncomplicated; R51.9 Headache, unspecified; F41.9 Anxiety disorder, unspecified
CPT/HCPCS: 94640; 96372; 99283; J2919